=== PATIENT | female | born 1990 | race African-American/Black ===

== ENCOUNTER 2021-11-10 22:12 | Inpatient (IN) | payer BC, MEDICAID ==
[~2021-11-10] VITALS: Ht 170.2 cm; Wt 89.8 kg
[2021-11-10] MEDS ORDERED: APIXABAN 5 MG TABLET PO ONE (23:30)
[2021-11-11 00:32] LABS: BASOPHILS % 0.2 % (0.0-2.0); EOSINOPHILS % 0.5 % (0.0-5.0); HEMATOCRIT. 37.3 % (36.0-48.0); HEMOGLOBIN. 12.8 g/dL (12.0-16.0); LYMPHOCYTES % 11.3 % (20.0-50.0); MEAN CORPUSCULAR HEMOGLOBIN 32.8 pg (28.0-32.0); MEAN CORPUSCULAR VOLUME 95.7 fL (81.0-99.0); MEAN PLATELET VOLUME 6.9 fl (7.4-10.4); MONOCYTES % 5.9 % (2.0-8.0); NEUTROPHILS % 82.1 % (40.0-76.0); PLATELET 280 x1000/uL (130-400); RED CELL DISTRIBUTION WIDTH 12.6 % (11.6-14.6)
[2021-11-11 00:38] LABS: CHLORIDE 104 mEq/L (98-107)
[2021-11-11 00:44] LABS: HCG SCREEN NEGATIVE
[2021-11-11 01:19] LABS: PARTIAL THROMBOPLASTIN TIME 29.2 sec (23.4-31.0); PROTHROMBIN TIME 10.5 sec (9.6-11.0)
[2021-11-11 09:20] VITALS: BP 128/82
[2021-11-11] MEDS ORDERED: ACETAMINOPHEN 325MG TABLET PO PRN ×2 (09:45)
[2021-11-11] MEDS ORDERED: DOCUSATE SODIUM 100MG CAPSULE PO PRN (09:45)
[2021-11-11] MEDS ORDERED: MAGNESIUM/ALUMINUM HYDROXIDE/SIMETHICONE 30ML UDC PO PRN (09:45)
[2021-11-11] MEDS ORDERED: GUAIFENESIN 200MG/10ML SUGAR FREE UDC PO PRN (09:45)
[2021-11-11] MEDS ORDERED: CLONIDINE 0.1MG TABLET PO PRN (09:45)
[2021-11-11] MEDS ORDERED: NITROGLYCERIN 0.4MG TABLET SL SL PRN (09:45)
[2021-11-11] MEDS ORDERED: ONDANSETRON HCL 4MG/2ML INJ IV PRN (09:45)
[2021-11-11] MEDS ORDERED: KETOROLAC 15MG/ML VIAL IV PRN (09:45)
[2021-11-11] MEDS ORDERED: IPRATROPIUM/ALBUTEROL 0.5-3(2.5)MG/3ML NEB NEB PRN (09:45)
[2021-11-11] MEDS: FAMOTIDINE 20MG TABLET PO SCH ×2 (10:13→21:05)
[2021-11-11] MEDS: ENOXAPARIN 40MG/0.4ML SYR SUBCUT SCH (10:14)
[2021-11-11 11:32] VITALS: BP 128/82
[2021-11-11] MEDS: BUPROPION HCL 150MG TABLET XL 24HR PO SCH (11:54)
[2021-11-11 12:00] VITALS: BP 123/70
[2021-11-11 16:00] VITALS: BP 120/73
[2021-11-11 20:00] VITALS: BP 119/82
[2021-11-11] MEDS ORDERED: ZOLPIDEM TARTRATE 5MG TABLET PO PRN (21:00)
[2021-11-12] VITALS: BP 120/84
[2021-11-12 04:00] VITALS: BP 128/86
[2021-11-12 06:43] LABS: BASOPHILS % 0.2 % (0.0-2.0); EOSINOPHILS % 0.6 % (0.0-5.0); HEMATOCRIT. 38.4 % (36.0-48.0); HEMOGLOBIN. 12.9 g/dL (12.0-16.0); LYMPHOCYTES % 15.3 % (20.0-50.0); MEAN CORPUSCULAR HEMOGLOBIN 32.4 pg (28.0-32.0); MEAN CORPUSCULAR VOLUME 96.2 fL (81.0-99.0); MEAN PLATELET VOLUME 7.4 fl (7.4-10.4); MONOCYTES % 7.5 % (2.0-8.0); NEUTROPHILS % 76.4 % (40.0-76.0); PLATELET 278 x1000/uL (130-400); RED BLOOD CELL COUNT 3.99 mill/uL (4.2-5.4); RED CELL DISTRIBUTION WIDTH 12.6 % (11.6-14.6)
[2021-11-12 07:06] LABS: CHLORIDE 106 mEq/L (98-107)
[2021-11-12 07:15] LABS: PHOSPHORUS 3.1 mg/dL (2.5-4.9)
[2021-11-12 08:00] VITALS: BP 132/102
[2021-11-12] MEDS: BUPROPION HCL 150MG TABLET XL 24HR PO SCH (08:41)
[2021-11-12] MEDS: FAMOTIDINE 20MG TABLET PO SCH (08:41)
[2021-11-12 09:47] VITALS: BP 132/92
[2021-11-12] MEDS: ENOXAPARIN 40MG/0.4ML SYR SUBCUT SCH (09:56)
== END 2021-11-12 11:21 | disposition home or self-care (01) | DRG 301 ==
LOC: ER 22:12 → MICUSO 11-11 01:10 → 6EST 11-11 09:20
PROVIDERS: ADMIT Internal Medicine; ATTEND Internal Medicine
DX: I82.4Z1 Acute embolism and thrombosis of unspecified deep veins of right distal lower extremity (principal); F32.A Depression, unspecified; R26.2 Difficulty in walking, not elsewhere classified; I82.441 Acute embolism and thrombosis of right tibial vein; Z79.899 Other long term (current) drug therapy
CPT/HCPCS: 36415; 80053; 80061; 83036; 83735; 84100; 84703; 85025; 93005; 93971; 97162; 97165; 99285; J1650; J1885